=== PATIENT | female | born 1965 | race Caucasian/White ===

== ENCOUNTER 2018-03-02 13:51 | Outpatient (CLI) | payer OTHER, MEDICAID | END 2018-03-02 13:52 | disposition home or self-care (01) | LOC: RHC-LAB 13:51 | PROVIDERS: ATTEND Nurse Practitioner Family | DX: Z51.81 Encounter for therapeutic drug level monitoring (principal); E11.9 Type 2 diabetes mellitus without complications; E78.5 Hyperlipidemia, unspecified; M25.50 Pain in unspecified joint; M25.461 Effusion, right knee; I10 Essential (primary) hypertension; F41.9 Anxiety disorder, unspecified | CPT/HCPCS: 36415; 80053; 80061; 80164; 83036; 84443; 85025; 85651; 86038; 86430 ==